=== PATIENT | female | born 1945 | race Caucasian/White ===

== ENCOUNTER 2025-02-13 07:38 | Inpatient (IN) | payer MEDICARE, SELFPAY ==
[2025-01-26 14:01] VITALS: BMI 27.1
--- NOTE | 2025-01-26 14:18 | CM ---
Demographics: confirmed
Living situation: lives alone
Support Person Post Operatively: Gale, Dayan
History of
VN: No
SNF: No
Outpatient: when surgically cleared
Has patient purchased required equipment: sling
PCP: confirmed
Pharmacy: [facility]
Post Operative Discharge Plan: Home with niece
[2025-01-26 14:29] LABS: Hematocrit 39.2 % (37.0-47.0); Hemoglobin 13.5 g/dL (12.0-16.0); Mean Corp Hgb Conc. 34.4 g/dL (33.0-37.0); Mean Corpuscular Volume 89.9 fL (81.0-99.0); Platelet Count 275 10^3/uL (130-400); Red Cell Dist. Width 13.2 % (11.5-14.5)
[2025-01-26 14:58] LABS: ALT (SGPT) 32 U/L (0-35); AST (SGOT) 34 U/L (14-36); Albumin 4.5 g/dl (3.5-5.0); Alkaline Phosphatase 78 U/L (38-126); Blood Urea Nitrogen 24 mg/dl (7-17); Calcium 9.4 mg/dl (8.4-10.2); Carbon Dioxide 23 mmol/L (22-30); Chloride 106 mmol/L (98-107); Estimated Creatinine Clearance 41 ml/min; Glucose 95 mg/dl (70-99); Potassium 4.8 mmol/L (3.5-5.1); Sodium 135 mmol/L (135-145); Total Protein 7.1 g/dl (6.3-8.2); eGFR > 60.00
[2025-01-26 17:58] VITALS: BMI 27.1
[2025-01-27 08:42] LABS: Glycohemoglobin (HgbA1c) 5.8 % (4.0-5.9)
[2025-02-13] VITALS (11 sets, daily range): BP systolic 111–150; BP diastolic 52–79
--- NOTE | 2025-02-13 07:33 | W.PN.UPDATE ---
Update Note
Progress Note Update
R shoulder OA w/ RC arthropathy s/p R Reverse TSA w/ Dr Delacruz 02/13/25
DVT prophylaxis - ASA, b/l venous foot pumps
RODNEY, no current device - monitor O2
- IS
- Consider Decadron to aid in lung perfusion. Pt initially wants to hold off on med
- Add supplemental O2 HS
GERD - pt advised to bring in home Lansoprazole
Irritable bowel syndrome with constipation - per pt preference, will start MOM HS w/ Colace BID
- She is aware to add Senokot should no bowel movement occur within 48-72 hours post-op
- Adequate hydration, early mobility as tolerated, and the minimization of opioids were also discussed tyrone-op
Hypercholesterolemia
Esophageal strictures
Dysphagia
Vertigo
Restless leg syndrome
Lumbosacral herniated discs
Uterine cancer, 2020, status post hysterectomy and radiation
Basal and squamous cell carcinoma, status post excision
History of recurrent UTIs
Rosacea
Bilateral cataracts, monitored serially
Osteoporosis
Insomnia
Post-surgical agitation associated with anesthesia
Prediabetes, A1c 5.8
[2025-02-13] MEDS: CELEBREX 200 MG PO (08:25)
[2025-02-13] MEDS: NORMOSOL-R/PLASMALYTE-A 1000 IV ×2 (08:42→14:49)
--- NOTE | 2025-02-13 12:33 | SUR.PHASEI ---
Lunch relief, xray done verna well, occ dry cough noted, denies pain at present
--- NOTE | 2025-02-13 13:36 | PTCARENOTE ---
Patient admitted from pacu post right total shoulder arthroplasty.The patient is alert and oriented.She denies any pain at present.The dressing is intact without any drainage.Neurovascular assessment is intact and ongoing.Vital signs are stable.The
patient is in her bed with the call hauser in reach.
[2025-02-13] MEDS: ANCEF 5 IV ×2 (17:04→23:37)
[2025-02-13] MEDS: FOLVITE 0.5 MG PO (17:04)
[2025-02-13] MEDS: ZETIA 10 MG PO (17:04)
[2025-02-13] MEDS: ASPIRIN 325 MG PO (17:04)
[2025-02-13] MEDS: COLACE 100 MG PO (19:14)
[2025-02-13] MEDS: BACTROBAN 2% OINTMENT 1 APPLIC NASAL (19:14)
--- NOTE | 2025-02-14 00:15 | PTCARENOTE ---
02/13 21:19 pt was received from ER, pt observed with bilateral breast J-P drains, bilateral breast folds red,indurated and hot to touch. Pt IVF infusing, IV abt given. Pt oriented to unit , unit which she recalls well as she expressed she had
mastectomies with spacers inserted on 02/02/2025 and was in a room on this unit.
[2025-02-14 03:00] VITALS: BP 114/59
--- NOTE | 2025-02-14 03:17 | DOWNTIME ---
There was a [employer] Downtime on 02/14/2025 from 0100 to 02/14/2025 at 0255. Downtime documentation of patient's care, including medication administrations, has been reconciled in the electronic record per guidelines. Refer to the
patient's paper chart under the miscellaneous tab to see printed paper medication records and downtime forms.
--- NOTE | 2025-02-14 03:21 | PTCARENOTE ---
pt was argumentative regarding the positioning of her /sling and having on the pump OT placed. Pt refused to have it in place, nurse attempted to educated proper and assist with placement to maintain TS precautions . Pt began to yell she wanted
someone who knew about slings and the pump not having to have to be in place . Co worker charge was called in to assist pt.
[2025-02-14 07:55] VITALS: BP 123/56
[2025-02-14] MEDS: ROXICODONE 5 MG PO ×2 (08:17→13:21)
[2025-02-14] MEDS: CELEBREX 200 MG PO (08:18)
[2025-02-14] MEDS: ASPIRIN PO (08:18)
[2025-02-14] MEDS: COLACE 100 MG PO (08:18)
[2025-02-14] MEDS: BACTROBAN 2% OINTMENT 1 APPLIC NASAL (08:19)
--- NOTE | 2025-02-14 09:54 | W.PN.ORTHO ---
Today's Communication / Plan
-
Await OT recs.
D/c later today if clinically stable.
Assessment
.
Distal Motor Intact: Yes
Dressing:
Clean, dry and intact.
Assessment:
R shoulder OA w/ RC arthropathy s/p R Reverse INGRID w/ Dr Delacruz 02/13/25
DVT prophylaxis - ASA, b/l venous foot pumps
RODNEY, no current device - O2 stable on RA by POD 1
- IS
- Consider Decadron to aid in lung perfusion. Pt initially wants to hold off on med
- Added supplemental O2 HS
GERD - pt advised to bring in home Lansoprazole
Irritable bowel syndrome with constipation - per pt preference, will start MOM HS w/ Colace BID
- She is aware to add Senokot should no bowel movement occur within 48-72 hours post-op
- Adequate hydration, early mobility as tolerated, and the minimization of opioids were also discussed tyrone-op
Hypercholesterolemia
Esophageal strictures
Dysphagia
Vertigo
Restless leg syndrome
Lumbosacral herniated discs
Uterine cancer, 2020, status post hysterectomy and radiation
Basal and squamous cell carcinoma, status post excision
History of recurrent UTIs
Rosacea
Bilateral cataracts, monitored serially
Osteoporosis
Insomnia
Post-surgical agitation associated with anesthesia
Prediabetes, A1c 5.8
Pt had several questions re: the bump associated w/ her sling. Spoke to surgeon about this. Bump is not necessary but can be used for comfort measures if needed. Pt and daughter expressed understanding.
Plan
.
Surgery / Date: R Reverse INGRID w/ Dr Delacruz 02/13/25
DVT Prophylaxis: Aspirin
Activity:
Out of bed.
PT/OT
Discharge Plan: Home (vs home w/ VN. Will await OT recs. Pt initially resistant to home care services )
Subjective
.
.:
Patient examined resting in bed.
Reports 5/10 R shoulder pain but resistant to taking more pain meds despite recommendations. Of note, she does appear comfortable.
Denies any new significant complaints.
Eager for potential d/c today.
Vital Signs and Labs
.
Vital Signs and Labs:
Lab Results
01/26/25 12:40
01/26/25 12:37
Temp Pulse Resp BP Pulse Ox
98.5 F 76 15 123/56 93
02/14/25 07:55 02/14/25 07:55 02/14/25 07:55 02/14/25 07:55 02/14/25 07:55
Non-invasive Hgb result: 13.2
Physical Exam
-
HEENT: No pallor, cyanosis, or jaundice. Throat clear.
NECK: Supple. No JVD.
RESPIRATORY: Lungs clear to auscultation.
CVS: S1, S2 normal. RRR.�
ABDOMEN: Soft, non-tender. No distension.
EXTREMITIES: +RUE sling. Able to wiggle fingers b/l. Good wafer fabrication technician/radial pulses b/l. Strength equal, no calf pain with palpation/dorsiflexion. Calves soft.
INVISIBLE BRACES ORTHODONTIST: AOx3. No focal deficits. gis analyst grossly intact
--- NOTE | 2025-02-14 10:02 | W.DS.TRANS ---
DC Summary - Service Bar Cashier
-
Discharge Instructions:
Discharge Diagnosis/Procedures R shoulder with rotator cuff arthropathy s/p R
Reverse TSA w/ Dr Delacruz 02/13/25
Diet Regular
Additional Diets Adequate hydration, minimize opioids, and wear
TEDs stockings to prevent low blood pressure/
dizziness.
Activity As tolerated, with assistance
Additional Activity Non-weightbearing right upper extremity
Driving Restrictions Not until seen by your Dr
Bathing Restrictions OK to Shower
Wound Care Leave dressing on until seen by surgeon's office
for follow-up.
Instructions:
Stand-Alone Forms: Total Shoulder Replacement D/C
Changes to Home Medications: Yes
Discharge Medications:
DC Medications w/original date entered in [employer]
Calcium + Vit D +Zinc 1 cap PO QPM Supplement 01/24/25
Sodium Sulfacetamide 1 unit topical DAILY facial wash 01/24/25
azelaic acid 15 % topical gel 1 applic topical DAILY Anti-Inflammatory 01/24/25
cranberry conc-ascorbic acid 1 tab PO QPM Supplement 01/24/25
ezetimibe 10 mg tablet 10 mg PO QPM High Cholesterol 01/24/25
folic acid 800 mcg tablet 0.8 mg PO QPM Supplement 01/24/25
lansoprazole 30 mg capsule,delayed release 30 mg PO DAILY Gastrointestinal Issue 01/24/25
celecoxib 200 mg capsule (Celebrex) 200 mg PO DAILY #14 caps 01/26/25
mupirocin 2 % topical ointment 1 applic intranasal BID #1 tube 01/26/25
ondansetron HCl 4 mg tablet 4 mg PO Q6H PRN nausea and vomiting #30 tabs 01/26/25
oxycodone 5 mg tablet 5 - 10 mg (1 - 2 x 5 mg) PO Q6H PRN moderate-severe pain #30 tabs 01/26/25
aspirin 325 mg tablet 325 mg PO DAILY #30 tabs 02/14/25
docusate sodium 100 mg capsule 100 mg PO BID #30 caps 02/14/25
lorazepam 0.5 mg tablet (Ativan) 0.5 mg PO DAILY PRN sleep/insomnia #0 tabs 02/14/25
magnesium hydroxide 400 mg/5 mL oral suspension (Milk of Magnesia) 30 ml PO DAILY #355 mL 02/14/25
sennosides 8.6 mg tablet (Mariah-randy) 17.2 mg (2 x 8.6 mg) PO BID PRN constipation #30 tabs 02/14/25
tacrolimus 0.1 % topical ointment 1 applic topical DAILY Anti-Inflammatory #30 grams 02/14/25
Home Medication Changes
celecoxib 200 mg capsule (Celebrex) 200 mg PO DAILY #14 caps 01/26/25
ondansetron HCl 4 mg tablet 4 mg PO Q6H PRN nausea and vomiting #30 tabs 01/26/25
oxycodone 5 mg tablet 5 - 10 mg (1 - 2 x 5 mg) PO Q6H PRN moderate-severe pain #30 tabs 01/26/25
aspirin 325 mg tablet 325 mg PO DAILY #30 tabs 02/14/25
docusate sodium 100 mg capsule 100 mg PO BID #30 caps 02/14/25
magnesium hydroxide 400 mg/5 mL oral suspension (Milk of Magnesia) 30 ml PO DAILY #355 mL 02/14/25
sennosides 8.6 mg tablet (Mariah-randy) 17.2 mg (2 x 8.6 mg) PO BID PRN constipation #30 tabs 02/14/25
Pending Results: No
--- NOTE | 2025-02-14 10:50 | CM ---
Addendum entered by Anjelica Fulton 02/14/25 11:36:
[facility] and patient has declined visiting nurse services and will stay with her niece.
Plan; Home no needs.
Original Note:
Patient is for discharge to home today, patient to stay with her niece at [address] [place] [address]. VN to talk with patient about OT and aide.
Plan; Home with niece.
[2025-02-14 10:55] VITALS: BP 127/62
--- NOTE | 2025-02-14 11:53 | VNURNOTE ---
PM-VN liaison met with patient and niece at bedside. Explained nurse/therapy, visits, schedule and homebound status. Explained that visits at home are 2-3 x per week to assess and teach medical management. Niece did not want a visit within the
next 1-2 days. Niece is a nurse and stated did not want a visit until Wednesday. Patient and niece thought about it more and decided against services. Declined services. No referral in [facility], notified.
== END 2025-02-14 13:49 | disposition home or self-care (01) | DRG 483 ==
LOC: 2 SOUTH 07:38
PROVIDERS: ADMITTING PHYSICIAN Specialist; FAMILY PHYSICIAN Family Medicine
PROC: 0RRJ00Z Replacement of Right Shoulder Joint with Reverse Ball and Socket Synthetic Substitute, Open Approach (ICD-10-PCS; 2025-02-13)
DX: M19.011 Primary osteoarthritis, right shoulder (principal); E78.00 Pure hypercholesterolemia, unspecified; G47.33 Obstructive sleep apnea (adult) (pediatric); K21.9 Gastro-esophageal reflux disease without esophagitis; K22.2 Esophageal obstruction; K58.1 Irritable bowel syndrome with constipation; G25.81 Restless legs syndrome; L71.9 Rosacea, unspecified; H26.9 Unspecified cataract; M81.0 Age-related osteoporosis without current pathological fracture; G47.00 Insomnia, unspecified; R73.03 Prediabetes; R45.1 Restlessness and agitation; Z87.440 Personal history of urinary (tract) infections; Z85.42 Personal history of malignant neoplasm of other parts of uterus; Z92.3 Personal history of irradiation; Z90.710 Acquired absence of both cervix and uterus; Z85.828 Personal history of other malignant neoplasm of skin
CPT/HCPCS: 36415; 73020; 80053; 83036; 85027; 87070; 93005; 97110; 97166; 97535; C1713; C1776